=== PATIENT | female | born 1995 | race Caucasian/White ===

== ENCOUNTER → 2022-02-12 13:42 | Outpatient (BNVA) | payer SELFPAY | PROVIDERS: Visit Provider Obstetrics & Gynecology | DX: Z01.419 Encounter for gynecological examination (general) (routine) without abnormal findings (principal) | CPT/HCPCS: 88175 ==

== ENCOUNTER → 2022-03-05 13:17 | Outpatient (BNVA) | payer SELFPAY | PROVIDERS: Visit Provider Obstetrics & Gynecology | DX: R63.5 Abnormal weight gain (principal); N92.6 Irregular menstruation, unspecified | CPT/HCPCS: 84443 ==

== ENCOUNTER → 2022-08-27 14:50 | Outpatient (BNVA) | payer OTHER, SELFPAY | PROVIDERS: Visit Provider Obstetrics & Gynecology | DX: N93.9 Abnormal uterine and vaginal bleeding, unspecified (principal) | CPT/HCPCS: 76830 ==

== ENCOUNTER 2022-10-05 11:24 | Day surgery (SDC) | payer OTHER, SELFPAY ==
[2022-10-04 15:15] VITALS: BMI 31.9
[2022-10-05] VITALS (7 sets, daily range): BP systolic 120–139; BP diastolic 68–95; PULSE 57–70; RESP 16–17; TEMP 36.1–36.8; O2SAT 96–100
[2022-10-05 11:50] LABS: OR HCG Qualitative Urine Negative (Negative)
[2022-10-05] MEDS: sodium chloride 0.9% 1,000 ML 30 ML IV (11:53)
--- NOTE | 2022-10-05 11:56 | ANES.PREANE2 ---
Pre-Anesthetic Assessment Height/Weight: Height 1.63 m Weight 84.368 kg Temp Pulse Resp BP Pulse Ox O2 Del Method 98.2 F 63 16 120/68 98 10/05/22 11:43 10/05/22 11:43 10/05/22 11:43 10/05/22 11:43 10/05/22 11:43 10/05/22 11:43 Preop Diagnosis: aub, thickened endometrium Operation Date: 10/05/22 13:00 Proposed Procedures p Hysteroscopy, dilation and curettage with Myosure [id number], N93.9, R93.89(Not Applicable) - Andree Ireland MD s Dilation And Curettage (D&C)(Not Applicable) - Andree Ireland MD Familial anesthetic complications: None Was Beta Augusto taken within 24 hours: N/A Was Clonidine taken within 24 hours: N/A Last intake: Intake Last Liquid Date 10/04/22 Last Liquid Time 21:30 Last Solid Date 10/04/22 Last Solid Time 21:30 Social No alcohol and No tobacco Exam alert, oriented x 3, clear to auscultation bilaterally and regular rate & rhythm Airway Mallampati: Class I Dentition: full Anesthetic Plan ASA status: 1 Anesthesia: General Risk of > 500 ml blood loss (7ml/kg in children): No Medications/Allergies Home Medications Medication Instructions Recorded Confirmed Last Taken Type No Known Home Medications 10/01/22 10/04/22 Unknown History Allergies Allergy/AdvReac Type Severity Reaction Status Date / Time oxycodone Allergy Intermediate ALGY-Rash Verified 09/02/22 07:56 Current Medications Generic Name Dose Route Start Last Admin Trade Name Freq PRN Reason Stop Dose Admin Sodium Chloride 1,000 mls @ 30 mls/hr 10/05/22 11:30 10/05/22 11:53 Sodium Chloride 0.9% IV 10/06/22 11:29 30 mls/hr .Q24H CARMEN Administration PFSH Anesthesia Medical History No pertinent past medical history Surgical History H/O knee surgery (~2013) Family History Mother Diabetes Grandmother Diabetes Stroke Denies family history of Colon cancer Ovarian cancer Heart disease Hypercholesteremia Breast cancer Hypertension Uterine cancer Thyroid disease Female Reproductive History Date of last menstrual period: 09/12/22 Data Anesthesia Cardiac Studies: No Data to Display
--- NOTE | 2022-10-05 12:21 | W.PM.OPSUD ---
Surgery/Procedure H&P Update DATE OF PROCEDURE: October 05, 2022 DATE H&P PERFORMED: 10/01/22 H&P UPDATE INFORMATION: I have reviewed H&P completed within last 30 days, I have examined patient prior to procedure and No changes to prior documentation PREOP DIAGNOSIS: aub, thickened endometrium PLANNED PROCEDURE: Operation Date: 10/05/22 13:00 Proposed Procedures p Hysteroscopy, dilation and curettage with Myosure [id number], N93.9, R93.89(Not Applicable) - Andree Ireland MD s Dilation And Curettage (D&C)(Not Applicable) - Andree Ireland MD Related Problem List Diagnoses (1) Thickened endometrium: (2) Abnormal uterine bleeding (AUB):
[2022-10-05] MEDS: ceFAZolin 2,000 MG in sodium chloride 0.9% (plus) 50 ML 100 MG IV (12:28)
--- NOTE | 2022-10-05 13:21 | P.OP_ITS ---
Operative Report Date of procedure: October 05, 2022 Pre-op diagnosis: Preop Diagnosis aub, thickened endometrium Post-op diagnosis: same Post-op findings: thickened endometrium Procedure done: hysteroscopy, dilation and curettage with myosure Specimens removed/disposition: endometrial currettings to pathology Surgeon: Andree Ireland Anesthesia: MAC Estimated blood loss (mL): 2 IV fluids (mL): 300 Complications: none Findings: hysteroscopy deficit 210 ml Condition: stable Disposition: PACU Procedure: The patient was taken to the operating room where monitored anesthesia was administered and to be adequate. She was prepped and draped in the normal sterile fashion in the dorsal lithotomy position in [facility]. A weighted speculum was placed into the vagina and the anterior lip of the cervix grasped with a single-tooth tenaculum. The uterus was sounded to 8 cm. The cervix was dilated to 16 [place]. The hysteroscope was advanced into the endometrial cavity. There was excessive tissue and polyps visualized. The MyoSure device was activated and the tissue was removed. Pictures were taken pre and post procedure. All instruments were removed. The patient tolerated the procedure well. Sponge lap and needle counts were correct x3. She was taken to the recovery room in stable condition.
--- NOTE | 2022-10-05 13:24 | PM.DCS ---
Discharge Providers Date of Admission: 10/05/22 Date of Discharge: October 05, 2022 Attending Provider at Discharge: Andree Ireland MD Diagnoses at Discharge Discharge Diagnosis (1) Thickened endometrium: Status: Acute (2) Abnormal uterine bleeding (AUB): Status: Acute Reason for Visit Reason for Visit: N39.9, R93.89 Hospital Course Hospital Course The patient was admitted for surgery. She did well postoperatively and was ready for discharge. Discharge Data Studies Completed and Pending Laboratory Results Urine HCG, Qual Negative (Negative) 10/05/22 11:38 Vitals Last Vital Signs Temp 98.2 F 10/05/22 11:43 Pulse 63 10/05/22 11:43 Resp 16 10/05/22 11:43 BP 120/68 10/05/22 11:43 Pulse Ox 98 10/05/22 11:43 O2 Del Method 10/05/22 11:43 Discharge Plan Discharge Patient Disposition: Home Condition: Stable Prescriptions: Continued No Known Home Medications Discharge Orders: Discharge Order (Routine); Ordered 10/05/22 Ordered By: Andree Ireland Discharge Attestations Time Spent in Discharge Care*: less than 30 min Quality Metrics Clinical Quality Measures [ No reported AMI, CVA or VTE this stay] Coding Level of Care Code Acute Code for Chg Fwd Diagnoses Thickened endometrium R93.89 Abnormal uterine bleeding (AUB) N93.9
[2022-10-05] MEDS: ketorolac 30 mg/mL INJ IM (13:25)
== END 2022-10-05 14:10 | disposition home or self-care (01) ==
PROVIDERS: Anesthesiology; Visit Provider Obstetrics & Gynecology
PROC: 0UDB8ZZ Extraction of Endometrium, Via Natural or Artificial Opening Endoscopic (ICD-10-PCS; CPT 58558; principal; 2022-10-05 12:50)
PROC: (CPT 58120; 2022-10-05 12:50)
DX: N93.9 Abnormal uterine and vaginal bleeding, unspecified (principal); R93.89 Abnormal findings on diagnostic imaging of other specified body structures
CPT/HCPCS: 58558; 81025; 84703; 88305; J0690; J1100; J1885; J2405; J2704; J3010; J7030

== ENCOUNTER → 2022-10-22 13:00 | Outpatient (BNVA) | payer OTHER, SELFPAY | PROVIDERS: Visit Provider Podiatrist Foot & Ankle Surgery | DX: M89.8X7 Other specified disorders of bone, ankle and foot (principal); Q74.2 Other congenital malformations of lower limb(s), including pelvic girdle | CPT/HCPCS: 73630 ==

== ENCOUNTER → 2024-06-22 09:08 | Outpatient (BNVA) | payer BC, SELFPAY | PROVIDERS: PCP Nurse Practitioner Family; Visit Provider Podiatrist Foot & Ankle Surgery | DX: M89.8X7 Other specified disorders of bone, ankle and foot (principal); M72.2 Plantar fascial fibromatosis; Q74.2 Other congenital malformations of lower limb(s), including pelvic girdle | CPT/HCPCS: 73630 ==